=== PATIENT | female | born 1985 | race Caucasian/White ===

== ENCOUNTER 2016-09-04 13:47 | Emergency (ER) | payer OTHER ==
[~2016-09-04] VITALS: Ht 144.7 cm; Wt 36.3 kg
[~2016-09-04 13:47] MED LIST: 'PARAFON FORTE500 M1 PO; BACTRIM DS 8001 TA1 PO; FLUTICASON0.05 MG/AC NAS; GOOD NEIGHBOR L10 MG PO; NAPROSYN500 MG PO; NAPROXEN375 MG PO; OMEPRAZOLE D/R20 MG PO; PYRIDIUM200 MG PO
[2016-09-04] MEDS ORDERED: MOTRIN 600 MG E4 TAB PO (15:35)
== END 2016-09-04 15:37 | disposition home or self-care (01) ==
LOC: ED 13:47
DX: M41.9 Scoliosis, unspecified (principal)